=== PATIENT | female | born 1965 | race Caucasian/White ===

== ENCOUNTER → 2018-01-20 | Day surgery (SDC) | payer OTHER ==
[~2018-01-20] VITALS: Ht 167.6 cm; Wt 134.3 kg
[~2018-01-20] MED LIST: KEFLEX500 M1 PO; TYLENOL WITH C1 EACH PO
[2018-01-20 09:15] LABS: ABSOLUTE BASOPHIL COUNT 0.1 /CUMM (0.0-0.2); ABSOLUTE EOSINOPHIL COUNT 0.4 /CUMM (0.0-0.7); ABSOLUTE GRANULOCYTE CT 6.5 /CUMM (1.4-6.5); ABSOLUTE LYMPH COUNT 2.1 /CUMM (1.2-3.4); ABSOLUTE MONOCYTE COUNT 0.6 /CUMM (0.10-0.60); EOSINOPHIL % 4.6 % (0-5); GRANULOCYTE % 66.9 % (42.2-75.2); HEMATOCRIT 31.4 % (37-47); MEAN CORPUSCULAR HGB 29.5 PG (27.0-31.0); MEAN CORPUSCULAR HGB CONC 33.6 G/DL (33.0-37.0); MEAN CORPUSCULAR VOLUME 87.7 FL (81.0-99.0); MEAN PLATELET VOLUME 8.7 FL (7.4-10.4); PLATELET COUNT 273 /CUMM (130-400); RBC DISTRIBUTION WIDTH 13.1 % (11.5-14.5); RED BLOOD CELL CT 3.58 /CUMM (4.20-5.40); WHITE BLOOD CELL COUNT 9.7 /CUMM (4.8-10.8)
[2018-01-20 09:22] LABS: PT 11.8 SEC (9.4-12.5); PTT 34 SEC (25-37)
--- NOTE | 2018-01-21 12:03 | Operative Report ---
See Addendum Operative/Inv Procedure Report Surgery Date: 01/13/18 Name of Procedure: D&C hysteroscopy Pre-Operative Diagnosis: Metromenorrhagia Post-Operative Diagnosis: Same Estimated Blood Loss: scant Surgeon/Air Traffic Controller Center: Luis Enrique PLASCENCIA,Perla Garrido Anesthesia: local monitored anesthesi Operative/Procedure Note Note: patient was taken the operating room placed supine position after adequate LMA patient was placed in dorsal lithotomy vagina was prepped and draped so fashion bladder was catheterized with a straight catheter. Examination under anesthesia performed. Tolerated this well at this point a speculum was placed in the vagina sutures times placed 12:00 cervix was dilated to allow for the insertion hysteroscope and direct visualization gas the scope was removed I WAS removed at this point sharp curettage of the endometrial lining was performed sharp curettage and cervical lining performed 2 specimen sent to pathology patient tolerated that well patient was awakened from anesthesia and transferred recovery room awake and alert counts correct
== END ==
LOC: STS 03:20
PROVIDERS: Specialist
DX: N92.1 Excessive and frequent menstruation with irregular cycle (principal); N87.9 Dysplasia of cervix uteri, unspecified; E11.9 Type 2 diabetes mellitus without complications; Z79.4 Long term (current) use of insulin; Z79.84 Long term (current) use of oral hypoglycemic drugs; I25.10 Atherosclerotic heart disease of native coronary artery without angina pectoris; J44.9 Chronic obstructive pulmonary disease, unspecified; Z87.891 Personal history of nicotine dependence; E66.9 Obesity, unspecified; Z68.42 Body mass index [BMI] 45.0-49.9, adult
CPT/HCPCS: 36415; 81003; 81025; 88305; 93005; 93010; J0131; J2250

== ENCOUNTER 2018-03-01 11:39 | Emergency (ER) | payer OTHER ==
--- NOTE | 2018-03-01 12:14 | ED UPPER/LOWER EXTREMITY COMPL ---
History of Present Illness General Chief Complaint: Lower Extremity Problems Stated Complaint: LT LEG SWELLING Source: patient Exam Limitations: no limitations Vital Signs & Intake/Output Vital Signs & Intake/Output Vital Signs Date Time Temp Pulse Resp B/P B/P Pulse O2 O2 Flow FiO2 Mean Ox Delivery Rate 03/01 1208 98.3 93 22 133/75 94 Room Air Allergies Coded Allergies: No Known Allergies (01/19/18) Reconcile Medications Cephalexin (Keflex) 500 MG CAPSULE 1 CAP PO BID CELLULITIS Tylenol With Codeine (Tylenol With Codeine #3 Tablet) 300 MG-30 MG TABLET 1 TAB PO BIDP PRN PAIN Triage Note: PER PT SAW CARDILOGIST FOR LLE SWELLING TAKEN OFF HTN MED AND INCREASED WATER PILL NO BETTER. PT HAS NOT HAD AN US DENIES SOB Triage Nurses Notes Reviewed? yes Onset: Gradual Duration: getting worse Timing: recent history Severity: severe Severity Numbers: 7 HPI: Patient is a 52-year-old female with a past medical history of peripheral neuropathy and leg swelling, hypertension and hyperlipidemia who states that she has been complaining of worsening left leg swelling for the past week. Patient followed up with her echo vascular technologist IN [place] last week and was advised to increase the Lasix and decreased amlodipine however patient states that she feels no better. Patient denies any fever chills hemoptysis shortness of breath chest pain dyspnea on exertion chest pain and upon exertion (Pradeep Sampson) Past History Travel History Traveled to [place] past 21 day No Medical History Any Pertinent Medical History? see below for history Neurological: NEUROPATHY EENT: NONE Cardiovascular: hypertension, CHOL Respiratory: NONE Gastrointestinal: REFLUX Hepatic: NONE Renal: NONE Musculoskeletal: ARTHRITIS Psychiatric: anxiety, depression Endocrine: TYPE 2 DM Surgical History Surgical History: non-contributory Psychosocial History What is your primary language Croatian Tobacco Use: Quit >30 days ago Family History Hx Contributory? No (Pradeep Sampson) Review of Systems Review of Systems Constitutional: Reports: no symptoms. EENTM: Reports: no symptoms. Respiratory: Reports: no symptoms. Cardiovascular: Reports: see HPI. Gastrointestinal/Abdominal: Reports: no symptoms. Genitourinary: Reports: no symptoms. Musculoskeletal: Reports: see HPI. Skin: Reports: no symptoms. Neurological/Psychological: Reports: no symptoms. Hematologic/Endocrine: Reports: no symptoms. Immunological: Reports: no symptoms. All Other Systems: Reviewed and Negative (Pradeep Sampson) Physical Exam Physical Exam General Appearance: no apparent distress, alert, comfortable Head: atraumatic Eyes: Bilateral: normal appearance. Ears, Nose, Throat: hearing grossly normal Neck: normal inspection Cardiovascular/Respiratory: no respiratory distress Peripheral Pulses: 2+ dorsalis pedis (L) Neurologic/Tendon: normal sensation, normal motor functions, normal tendon functions, responds to pain, no evidence tendon injury, no pulse deficit Skin: intact Diagram Legs Front/Back 1) Noted +2 pitting edema with superficial point tenderness and mild erythema circumferential dermatomes intact pedal pulse +2 capillary refill less than 2 seconds (Rachel JACKSON,Pradeep) Progress Differential Diagnosis: arterial insufficiency, cellulitis, CHF, compartment syndrome, contusion, DVT, fracture, gout, septic arthritis, sprain Plan of Care: Orders Procedure Date/time Status US-UNILATERAL VENOUS DOPPLER 03/01 1207 Active Patient on initial presentation is resting comfortably at bedside denies any cardiovascular rest for symptoms no concerns of pulmonary embolism Patient does have mild erythema and superficial point tenderness upon physical palpation of the left lower extremity Mild concerns cellulitis Ultrasound was resulted no concerns of DVT I gave ultrasound results the patient I applied a Shahid wrap to patient's left lower extremity pre-and post- neurovascular was intact She states that she has a follow-up appointment tomorrow with her primary care doctor Patient will be given antibiotics for mild suspicion of cellulitis Diagnostic Imaging: Viewed by Me: Ultrasound. Radiology Impression: no acute abnormality Comments: PATIENT: RAGHAV ROOT PRESENT AGE: 52 PATIENT ACCOUNT NO: [id number] : 67 LOCATION: [facility] ORDERING PHYSICIAN: Pradeep JACKSON SERVICE DATE: 03/01/18 EXAM TYPE: US - US-UNILATERAL VENOUS DOPPLER EXAMINATION: US TRIPLEX LOWER EXTREMITY, LEFT CLINICAL INFORMATION: This is a 52-year-old female with left leg swelling. Possible deep vein thrombosis. COMPARISON: None TECHNIQUE: Color-flow triplex imaging with spectral analysis and compression Doppler were performed on the lower extremity. FINDINGS: Respiratory variation, normal compression and augmented flow are noted throughout the lower extremity. The visualized common femoral vein, superficial femoral vein, profunda femoral vein, popliteal vein and midcalf peroneal and posterior tibial venous segments show no evidence of deep venous thrombosis. There is a fluid collection in the medial proximal calf measuring 3.8 x 1.7 x 2.9 cm. This could represent a popliteal cyst. IMPRESSION: 1. There is no deep vein thrombosis. 2. There is a cyst within the calf which could represent a popliteal cyst. This could be a source of the patient's pain. DICTATED BY: Stuart Best MD DATE/TIME DICTATED:03/01/181333 BEATER DUMPER:ELMER DATE/TIME TRANSCRIBED:03/01/181333 CONFIDENTIAL, DO NOT COPY WITHOUT APPROPRIATE AUTHORIZATION. (Pradeep Sampson) Departure Departure Disposition: HOME OR SELF CARE Condition: Stable Clinical Impression Primary Impression: Leg edema, left Secondary Impressions: Cellulitis, Peripheral neuropathy Referrals: Kristin Ruiz MD (PCP/Family) Additional Instructions: As discussed follow-up the echo vascular technologist this week and follow with your primary care doctor's appointment tomorrow for further evaluation treatment. Begin the prescription of Tylenol codeine for pain and Keflex for your symptoms. Begin the foot for swelling begin using the Shahid wrap for swelling. If symptoms worsen or if you develop any new concerning symptoms. Prescriptions are waiting at [facility] Departure Forms: Customer Survey General Discharge Information Prescriptions: Current Visit Scripts Tylenol With Codeine (Tylenol With Codeine #3 Tablet) 1 TAB PO BIDP PRN PAIN #8 TAB Cephalexin (Keflex) 1 CAP PO BID #14 CAP (Pradeep Sampson) PA/GETTER OPERATOR Co-Sign Statement Statement: ED Attending supervision documentation- I saw and evaluated the patient. I have also reviewed all the pertinent lab results and diagnostic results. I agree with the findings and the plan of care as documented in the PA's/GETTER OPERATOR's documentation. x I have reviewed the ED Record and agree with the PA's/GETTER OPERATOR's documentation. [] Additions or exceptions (if any) to the PAs/GETTER OPERATOR's note and plan are summarized below: [] (Roseann PLASCENCIA,Favio)
--- NOTE | 2018-03-01 13:39 | ULTRASOUND REPORT ---
EXAMINATION: US TRIPLEX LOWER EXTREMITY, LEFT CLINICAL INFORMATION: This is a 52-year-old female with left leg swelling. Possible deep vein thrombosis. COMPARISON: None TECHNIQUE: Color-flow triplex imaging with spectral analysis and compression Doppler were performed on the lower extremity. FINDINGS: Respiratory variation, normal compression and augmented flow are noted throughout the lower extremity. The visualized common femoral vein, superficial femoral vein, profunda femoral vein, popliteal vein and midcalf peroneal and posterior tibial venous segments show no evidence of deep venous thrombosis. There is a fluid collection in the medial proximal calf measuring 3.8 x 1.7 x 2.9 cm. This could represent a popliteal cyst. IMPRESSION: 1. There is no deep vein thrombosis. 2. There is a cyst within the calf which could represent a popliteal cyst. This could be a source of the patient's pain.
[2018-03-01] MEDS ORDERED: TYLENOL WITH C1 EACH PO (13:58)
[2018-03-01] MEDS ORDERED: KEFLEX500 M1 PO (13:58)
[2018-03-01 14:07] VITALS: BP 128/68
== END 2018-03-01 14:07 ==
LOC: ERH 11:39
DX: L03.116 Cellulitis of left lower limb (principal); R60.0 Localized edema; G62.9 Polyneuropathy, unspecified